=== PATIENT | female | born 1970 | race Caucasian/White ===

== ENCOUNTER → 2017-03-17 | Outpatient (CLI) | payer MEDICARE, MEDICAID ==
[~2017-03-17] MED LIST: ATARAX25 MG PO; CONCERTA54 MG PO; FLUOXETINE20 MG PO; GLUCOPHAGE1000 MG PO; INDERAL40 MG PO; INHALER; JANUMET 1000 MG1 TA1 PO; Janumet 1000 MG1 TAB PO; KLONOPIN1 MG PO; LISINOPRIL20 MG PO; NAPROSYN500 MG PO; NORCO 325 MG-51 TAB PO; NORCO 5-325 TA1 EACH PO; PREDNICOT20 MG PO; PREDNISONE20 MG PO; SEROQUEL100 MG PO; TESSALON PERLE100 M1 PO; Tobradex 0.3-0.15 ML OPH; ZITHROMAX Z PA250 MG PO; [UNRECOGNIZED DRUG - OTHER]
== END | disposition home or self-care (01) ==
LOC: RAD 08:18
DX: M54.2 Cervicalgia (principal); R20.0 Anesthesia of skin; M79.641 Pain in right hand; M79.601 Pain in right arm

== ENCOUNTER → 2018-01-01 | Outpatient (CLI) | payer MEDICARE, MEDICAID ==
[2018-01-01 09:08] LABS: BASO % 0.1 % (0.0-1.0); EOS # 0.2 10*3/uL (0.0-0.4); EOS % 2.5 % (1.0-4.0); HEMATOCRIT 38.5 % (37.0-47.0); HEMOGLOBIN 12.6 g/dl (12.0-16.0); LYMPH # 2.7 10*3/uL (1.3-4.4); LYMPH % 28.7 % (27.0-41.0); MEAN CORPUSCULAR HGB 29.4 pg (27.0-31.0); MEAN CORPUSCULAR HGB CONC 32.7 g/dl (33.0-37.0); MEAN PLATELET VOLUME 8.6 fl (9.6-12.3); MONO # 0.5 10*3/uL (0.1-1.0); MONO % 5.8 % (3.0-9.0); NEUT # 5.8 10*3/uL (2.3-7.9); NEUT % 62.6 % (47.0-73.0); PLATELET COUNT AUTOMATED 355 10*3/uL (130-400); RED BLOOD COUNT 4.28 10*6/uL (4.10-5.10); RED CELL DISTRI WIDTH 13.9 % (0-14.5); WHITE BLOOD COUNT 9.3 10*3/uL (4.8-10.8)
[2018-01-01 09:37] LABS: ALBUMIN 3.7 gm/dl (3.1-4.5); ALKALINE PHOSPHATASE 72 U/L (45-117); BUN 19 mg/dl (7-24); CHLORIDE 106 mmol/L (98-107); CHOLESTEROL 105 mg/dL (<200); CREATININE 1.01 mg/dL (0.55-1.02); HDL CHOLESTEROL 38 mg/dl (40-60); LDL CHOLESTEROL 49 mg/dL (9-159); SGOT/AST 13 IU/L (3-35); SGPT/ALT 13 U/L (12-78); SODIUM 140 mmol/L (136-145); TOTAL PROTEIN 6.7 gm/dL (6.4-8.2); TRIGLYCERIDES 89 mg/dl (<150); VLDL CHOLESTEROL 18 mg/dL (6-40)
== END | disposition home or self-care (01) ==
LOC: LAB 08:38
PROVIDERS: Nurse Practitioner Family
DX: E66.9 Obesity, unspecified (principal); I10 Essential (primary) hypertension; E11.9 Type 2 diabetes mellitus without complications

== ENCOUNTER → 2018-01-08 | Outpatient (CLI) | payer MEDICARE, MEDICAID | END | disposition home or self-care (01) | LOC: CT 01-06 14:00 | DX: H53.8 Other visual disturbances (principal); R51 Headache; J32.9 Chronic sinusitis, unspecified ==

== ENCOUNTER → 2018-10-27 | Outpatient (CLI) | payer MEDICARE, MEDICAID | END | disposition home or self-care (01) | LOC: MAMMO 02:50 | DX: Z12.31 Encounter for screening mammogram for malignant neoplasm of breast (principal) ==

== ENCOUNTER → 2019-07-03 | Outpatient (CLI) | payer MEDICARE, MEDICAID | END | disposition home or self-care (01) | LOC: RAD 08:00 | DX: K59.00 Constipation, unspecified (principal); R19.8 Other specified symptoms and signs involving the digestive system and abdomen; Z90.49 Acquired absence of other specified parts of digestive tract ==

== ENCOUNTER → 2019-07-07 | Outpatient (CLI) | payer MEDICARE, MEDICAID | END | disposition home or self-care (01) | LOC: CT 08:43 | DX: K59.00 Constipation, unspecified (principal); R10.9 Unspecified abdominal pain; R10.84 Generalized abdominal pain ==

== ENCOUNTER → 2019-09-19 | Outpatient (CLI) | payer MEDICARE, MEDICAID | END | disposition home or self-care (01) | LOC: RAD 08:10 | DX: R06.02 Shortness of breath (principal) ==

== ENCOUNTER → 2019-10-06 | Outpatient (CLI) | payer MEDICARE, MEDICAID | END | disposition home or self-care (01) | LOC: US 01:10 | DX: R10.11 Right upper quadrant pain (principal); R10.12 Left upper quadrant pain; R14.0 Abdominal distension (gaseous); R19.8 Other specified symptoms and signs involving the digestive system and abdomen ==

== ENCOUNTER → 2020-07-25 | Outpatient (CLI) | payer MEDICARE, MEDICAID | END | disposition home or self-care (01) | LOC: COVID19 08:17 | PROVIDERS: ATTEND Nurse Practitioner Primary Care | DX: Z20.828 Contact with and (suspected) exposure to other viral communicable diseases (principal) ==

== ENCOUNTER 2024-01-21 18:45 | Emergency (ER) | payer MEDICARE, MEDICAID ==
[~2024-01-21] VITALS: Ht 160 cm; Wt 71.2 kg
[2024-01-21] MEDS ORDERED: METFORMIN HYDR500 MG PO (19:17)
[2024-01-21 19:50] LABS: BASO % 0.3 % (0.0-1.0); EOS # 0.1 10*3/uL (0.0-0.4); EOS % 0.6 % (1.0-4.0); HEMATOCRIT 44.9 % (37.0-47.0); LYMPH # 2.7 10*3/uL (1.3-4.4); LYMPH % 19.1 % (27.0-41.0); MEAN CELL VOLUME 88.4 fl (81.0-99.0); MEAN CORPUSCULAR HGB 28.9 pg (27.0-31.0); MEAN CORPUSCULAR HGB CONC 32.7 g/dl (33.0-37.0); MEAN PLATELET VOLUME 9.4 fl (9.6-12.3); MONO # 1.3 10*3/uL (0.1-1.0); MONO % 9.4 % (3.0-9.0); NEUT # 9.8 10*3/uL (2.3-7.9); NEUT % 70.2 % (47.0-73.0); PLATELET COUNT AUTOMATED 223 10*3/uL (130-400); RED BLOOD COUNT 5.08 10*6/uL (4.10-5.10); RED CELL DISTRI WIDTH 12.8 % (0-14.5); WHITE BLOOD COUNT 13.9 10*3/uL (4.8-10.8)
[2024-01-21] MEDS ORDERED: Albuterol Sulf/Ipratropium 3 ML VIAL NEB ONE (19:50)
[2024-01-21 20:18] LABS: POTASSIUM 4.2 mmol/L (3.4-5.1); TOTAL PROTEIN 7.1 gm/dL (6.0-8.0)
[2024-01-21] MEDS ORDERED: ASPIRIN, CHEWABLE 81 MG TAB PO ONE (20:25)
[2024-01-21] MEDS ORDERED: ADDERALL XR 3030 MG PO (21:07)
[2024-01-21] MEDS ORDERED: HEPARIN SODIUM 250 ML IV ONE (23:15)
[2024-01-21] MEDS ORDERED: INSULIN REGULAR, HUMAN 1 UNIT/0.01 ML IV ONE (23:25)
[2024-01-21] MEDS ORDERED: SODIUM CHLORIDE 0.9% 1,000 ML IV ONE (23:25)
[2024-01-21] MEDS ORDERED: IOHEXOL 350 MG/ML 100 ML VIAL IV ONE (23:35)
[2024-01-21] MEDS ORDERED: SODIUM CHLORIDE 0.9% 100 ML BAG IV ONE (23:35)
[2024-01-22] MEDS ORDERED: SODIUM CHLORIDE 0.9% 100 ML IV ONE (00:06)
[2024-01-22] MEDS ORDERED: IOHEXOL 350 MG/ML 100 ML VIAL IV ONE (00:07)
[2024-01-22] MEDS ORDERED: HEPARIN SODIUM 250 ML IV SCH (00:10)
== END 2024-01-22 03:38 | disposition short-term general hospital (02) ==
LOC: ED 18:45
PROVIDERS: Emergency Medicine
DX: I26.02 Saddle embolus of pulmonary artery with acute cor pulmonale (principal); R79.89 Other specified abnormal findings of blood chemistry; D72.829 Elevated white blood cell count, unspecified; E11.9 Type 2 diabetes mellitus without complications; F32.A Depression, unspecified; F41.9 Anxiety disorder, unspecified; F90.9 Attention-deficit hyperactivity disorder, unspecified type; Z88.0 Allergy status to penicillin; Z88.8 Allergy status to other drugs, medicaments and biological substances; Z98.890 Other specified postprocedural states

== ENCOUNTER → 2024-06-21 | Outpatient (CLI) | payer MEDICARE, MEDICAID ==
[~2024-06-21] MED LIST changes: +ADDERALL XR 3030 MG PO; +METFORMIN HYDR500 MG PO
== END | disposition home or self-care (01) ==
LOC: RAD 09:43
PROVIDERS: ATTEND Nurse Practitioner Primary Care
DX: M25.511 Pain in right shoulder (principal)